=== PATIENT | female | born 1975 | race Caucasian/White ===

== ENCOUNTER → 2018-05-13 15:38 | Outpatient (CLI) | payer OTHER, SELFPAY ==
[2018-05-15 14:54] LABS: Progesterone 0.7 ng/mL
== END ==
PROVIDERS: PCP Nurse Practitioner; Visit Provider Obstetrics & Gynecology
DX: L65.9 Nonscarring hair loss, unspecified (principal)
CPT/HCPCS: 36415; 84144

== ENCOUNTER → 2023-01-10 15:09 | Outpatient (CLI) | payer OTHER, SELFPAY ==
--- NOTE | 2023-01-10 | DI.US.S_ITS ---
PROCEDURE: US PELVIC COMPLETE INDICATIONS: UNSPECIFIED OVARIAN CYST, UNSPECIFIED SIDE TECHNIQUE: Real-time scanning was performed of the pelvic organs, with image documentation. Additional endovaginal scanning was necessary due to incomplete visualization of the adnexal and endometrial structures by transabdominal scanning. COMPARISON: [facility], [place], US PELVIC COMPLETE, 12/01/2021, 10:41. FINDINGS: Uterus: Uterus is anteverted and borderline enlarged in size at 8.4 x 4.7 x 6.3 cm. The myometrium is homogeneous. No discrete uterine fibroid is seen. The endometrium measures 10.2 mm combined thickness. No endometrial mass or fluid. Ovaries: The right ovary measures 3.2 x 1.8 x 2.5 cm, with a calculated ovarian volume of 7.4 cc. The left ovary measures 2.5 x 2.2 x 2.2 cm, with a calculated ovarian volume of 6.4 cc. The ovaries have a normal sonographic appearance. Less than 12 follicles can be seen in each ovary. No adnexal masses are seen. Other: No pathologic free abdominal or pelvic fluid. IMPRESSION: Borderline enlarged uterus. No discrete uterine fibroid. No endometrial mass or fluid. Normal appearing bilateral ovaries. We strive to produce accurate, complete, and clear reports of imaging services. To assist us in improving patient care, this report was composed using standard report templates and voice recognition software. Therefore, it may contain abnormal punctuation, insertions and/or omissions. Occasional wrong-word or sound-alike substitutions may occur. Though we review the report and make efforts to correct it, we do recommend that the report be read carefully in proper context to recognize any text inaccuracies. Dictated by: Marcus Chambers M.D. on 01/10/2023 at 16:04 Approved by: Marcus Chambers M.D. on 01/10/2023 at 16:14
== END ==
PROVIDERS: Family Provider Nurse Practitioner; PCP Nurse Practitioner Family; Referring Provider Nurse Practitioner Family; Visit Provider Nurse Practitioner Family
DX: N83.209 Unspecified ovarian cyst, unspecified side (principal)
CPT/HCPCS: 76830; 76856; 93975

== ENCOUNTER → 2023-04-09 16:01 | Outpatient (CLI) | payer OTHER, SELFPAY ==
--- NOTE | 2023-04-09 16:03 | DI.US.S_ITS ---
PROCEDURE: US EXTREMITY NONVASC LOWER LT INDICATIONS: POSSIBLE FOREIGN BODY LEFT ANTERIOR BIG TOE TECHNIQUE: Real-time scanning was performed of the left great toe , with image documentation. COMPARISON: None. FINDINGS: There are 2 linear echogenic structures in the region of interest involving the left great toe likely representing subcutaneous foreign bodies largest measuring up to 7.5 mm and the smaller 3.0 mm. IMPRESSION: Probable subcutaneous soft tissue foreign bodies within the left great toe, largest measuring up to 7.5 mm Dictated by: Aniket Cha [facility] Interpreted: John Ibarra MD on 04/09/2023 at 20:25 Transcribed by: [email or web address] on 04/10/2023 at 8:15 Approved by: John Ibarra M.D. on 04/10/2023 at 12:27
== END ==
PROVIDERS: Family Provider Nurse Practitioner; PCP Nurse Practitioner Family; Referring Provider Family Medicine; Visit Provider Family Medicine
DX: S99.922A Unspecified injury of left foot, initial encounter (principal); M79.675 Pain in left toe(s); X58.XXXA Exposure to other specified factors, initial encounter; R22.42 Localized swelling, mass and lump, left lower limb
CPT/HCPCS: 76882